=== PATIENT | female | born 1935 | race Caucasian/White ===

== ENCOUNTER 2018-10-17 13:07 | Inpatient (IN) | payer OTHER ==
[2018-10-17] MEDS ORDERED: SODIUM CHLORIDE 1,000 ML IV STA (13:32)
--- NOTE | 2018-10-17 13:37 | PDOC ---
History of Present Illness - General Chief Complaint: Shortness of Breath Stated Complaint: RESPIRATORY PROBLEM Time Seen by Provider: 10/17/18 13:18 History Source: Patient, Family (son), Old Records Exam Limitations: No Limitations - History of Present Illness Initial Comments: 10/17/18 13:40 83yo F with PMH of Asthma?, Hypothyroidism, Restrictive Lung Disease, GERD presenting to ED with complaints of SOB x4m but worsened yesterday. She states that it has gotten to the point that she cannot walk, talk or perform any activity without feeling short of breath. She was following up with a food crops farm hand but has not gotten any breathing treatments. She was supposed to wear a vest but she refused. She endorses dry cough which has worsened over the past few days. She is also complaining of having low energy and decreased appetite. She has lost about 20lb in 8 months and occasional night sweats. No FH of malignancy. 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 Denies fevers, chills, abdominal pain, n/v/ d, back pain, She was in [facility] in June 2018 for similar complaints and CT scans showed pulmonary fibrosis, pulmonary hypertension. She has been following up with a food crops farm hand. PMD: Shoshana Pulm: Miguel Germain PMH: see hpi PSH: none Meds: Prilosec, Levothyroxine Allergies: PCN, albuterol Social: denies Past History - Past Medical History Allergies/Adverse Reactions: Allergies Allergy/AdvReac Type Severity Reaction Status Date / Time Penicillins Allergy Verified 10/17/18 13:21 albuterol AdvReac Verified 10/17/18 13:21 Home Medications: Ambulatory Orders Levothyroxine [Synthroid -] 88 mcg PO DAILY 10/17/18 Omeprazole 20 mg PO DAILY 10/17/18 Asthma: Yes (pt's paperwork states she has asthma, though she denies) Cardiac Disorders: Yes (Bicuspid aortic valve) COPD: No Thyroid Disease: Yes (hyp0, had goiter, radiated) Other medical history: "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 No: Chills, Fever HEENTM: No: Symptoms Reported Respiratory: Yes: See HPI, Cough, Shortness of Breath, SOB with Exertion, SOB at Rest Cardiac (ROS): Yes: Chest Tightness. No: Chest Pain, Lightheadedness, Palpitations, Syncope ABD/GI: No: Symptoms Reported : No: Symptoms Reported Musculoskeletal: No: Symptoms Reported Integumentary: No: Symptoms Reported Neurological: No: Symptoms reported *Physical Exam - Vital Signs Last Vital Signs Temp Pulse Resp BP Pulse Ox 98 F 129 H 28 H 133/73 86 L 10/17/18 13:21 10/17/18 13:21 10/17/18 13:21 10/17/18 13:21 10/17/18 13:21 - Physical Exam General Appearance: Yes: Appropriately Dressed, Mild Distress, Cachetic HEENT: positive: EOMI, SONJA, Normal ENT Inspection, Pharynx Normal Neck: positive: Trachea midline, Supple. negative: Lymphadenopathy (R), Lymphadenopathy (L) Respiratory/Chest: positive: Crackles, Rhonchi. negative: Respiratory Distress , Accessory Muscle Use Cardiovascular: positive: S1, S2, Murmur, Tachycardia. negative: Edema, JVD Vascular Pulses: Dorsalis-Pedis (R): 2+, Doralis-Pedis (L): 2+ Gastrointestinal/Abdominal: positive: Normal Bowel Sounds, Soft. negative: Tender Musculoskeletal: negative: CVA Tenderness Extremity: positive: Normal Capillary Refill. negative: Pedal Edema, Swelling, Calf Tenderness Integumentary: positive: Normal Color, Dry, Warm Neurologic: positive: lead nitrate processor II-XII NML intact, Fully Oriented, Alert, Normal Mood/ Affect, Normal Response, Motor Strength 07/11 ED Treatment Course - LABORATORY CBC & Chemistry Diagram: 10/18/18 06:00 10/18/18 06:00 Medical Decision Making - Medical Decision Making 10/17/18 14:06 83yo F with PMH of Asthma?, Hypothyroidism, Restrictive Lung Disease presenting to ED with complaints of SOB x4m but worsened yesterday. She states that it has gotten to the point that she cannot walk, talk or perform any activity without feeling short of breath. She was following up with a food crops farm hand but has not gotten any breathing treatments. She was supposed to wear a vest but she refused. She endorses dry cough which has worsened over the past few days. She is also complaining of having low energy and decreased appetite. She has lost about 20lb in 8 months and occasional night sweats. No FH of malignancy. 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 She was in [facility] in June 2018 for similar complaints and CT scans showed pulmonary fibrosis, pulmonary hypertension. She has been following up with a food crops farm hand. Vitals: tachycardic, tachypneic, saturating low on RA PE: coarse breath sounds, rhonchorous. cachectic. no edema ddx includes but not limited to pna, ILD, chf, copd, metabolic abnormality, mass /malignancy. will obtain blood work, ekg, cxr. fluids. Rectal temp 99.3. ekg: sinus tachycardia at 118/ [r 126, qtc 428. no ann or depressions. CT scans from [facility]? 06/09/18: CTA enlarged pulmonary aa, extensive fibrosis, traction bronchiectasis, scarring in CARLOS but also lingula, medial LLL R apex. [place] attenuation which may reflect air trapping. penumomediastinum without pneumothorax. Esophogram; abnormal esophageal motility with diffuse tertiary contractions and delayed passage of contrast from stomach to esophagus. 10/17/18 15:32 cxr: scoliosis with convexity to the R and degenerative changes. Mediastinal shift to mic L with elevated L hemidiaphragm, gastric distention and L infiltrate and atelectasis. R lung has increased lung markings with questionable infiltrate at R base. Will obtain cultures and start on antibiotics. Pt complaining of Gerd, will give pepcid. 10/17/18 17:[address] scan. It was explained to the patient that it is vital to understand what is going on inside her lungs and xray is not the most sensitive test. She states that she has had CT scans and she does not want more radiation. It was explained to the patient that the CT scan will better narrow down the diagnosis and see if her condition is getting worse. Patient continues to refuse. Will admit to tele for pna, sob and further investigation of lung disease. accepted by hospitalist. 10/17/18 17:26 pt said she received medication and started to feel itchy. will give Benadryl *DC/Admit/Observation/Transfer Diagnosis at time of Disposition: Shortness of breath PNA (pneumonia) Qualifiers: Pneumonia type: due to unspecified organism Laterality: unspecified laterality Lung location: unspecified part of lung Qualified Code(s): J18.9 - Pneumonia, unspecified organism - Referrals - Patient Instructions - Post Discharge Activity
[2018-10-17 13:38] LABS: BASO % 0.7 % (0-2.0); EOS % 1.3 % (0-4.5); HEMATOCRIT 37.8 % (32.4-45.2); HEMOGLOBIN 12.4 GM/dL (10.7-15.3); LYMPH % 13.7 % (8-40); MCH 28.7 pg (25.7-33.7); MCHC 32.8 g/dl (32.0-36.0); MEAN CELL VOLUME 87.2 fl (80-96); MEAN PLT VOLUME 9.5 fl (7.5-11.1); MONO % 6.1 % (3.8-10.2); NEUT % 78.2 % (42.8-82.8); RBC 4.33 M/mm3 (3.60-5.2); RDW 13.3 % (11.6-15.6); WHITE BLOOD COUNT 11.3 K/mm3 (4.0-10.0)
[2018-10-17 13:45] LABS: PLATELET COUNT 288 K/MM3 (134-434)
[2018-10-17 13:50] LABS: INR 1.11 (0.83-1.09); PROTHROMBIN TIME (PATIENT) 13.1 SEC (9.7-13.0)
[2018-10-17 14:14] LABS: ALBUMIN 3.2 g/dl (3.4-5.0); BILIRUBIN,TOTAL 0.5 mg/dL (0.2-1); BLOOD UREA NITROGEN 14.6 mg/dL (7-18); CALCIUM 9.5 mg/dL (8.5-10.1); CREATININE 0.7 mg/dL (0.55-1.3); MAGNESIUM 1.9 mg/dL (1.8-2.4); POTASSIUM 4.2 mmol/L (3.5-5.1)
[2018-10-17] MEDS ORDERED: FAMOTIDINE 20 MG/50 ML IVPB 20 MG/50 ML MG IVPB ONE ×2 (14:15→14:24)
--- NOTE | 2018-10-17 14:18 | EKG ---
Test Reason : Blood Pressure : / mmHG Vent. Rate : 118 BPM Atrial Rate : 118 BPM P-R Int : 126 ms QRS Dur : 084 ms QT Int : 306 ms P-R-T Axes : 057 -18 032 degrees QTc Int : 428 ms SINUS TACHYCARDIA POSSIBLE LEFT ATRIAL ENLARGEMENT POSSIBLE ANTERIOR INFARCT , AGE UNDETERMINED ABNORMAL ECG NO PREVIOUS ECGS AVAILABLE Confirmed by MD Naeem, Darrell ([id number]) on 10/17/2018 2:18:05 PM Referred By: Confirmed By:Darrell Hartley MD
[2018-10-17] MEDS ORDERED: VANCOMYCIN 1 GM in D5W (PRE-DOCKED) 1,000 MG/250 ML IVPB ONE (14:49)
--- NOTE | 2018-10-17 14:50 | PDOC ---
Documentation entered by Darrell Neri SCRIBE, acting as scribe for Vanna Abreu MD. Vanna Abreu MD: This documentation has been prepared by the evanibeDaron Daniel, SCRIBE, under my direction and personally reviewed by me in its entirety. I confirm that the documentation accurately reflects all work, treatment, procedures, and medical decision making performed by me. Attending Attestation - Resident Resident Name: Birgit,Krista - ED Attending Attestation I have performed the following: I have examined & evaluated the patient, The case was reviewed & discussed with the resident, I agree w/resident's findings & plan, Exceptions are as noted - HPI HPI: 10/17/18 13:53 The patient is an 83 year old female with a past medical history of hypothyroidism, fibrosis, and restrictive lung disease here today for evaluation of shortness of breath. The patient reports that she was admitted to another hospital in June of this year for URI. She reports that she has had shortness of breath since then and that is was the worst it has been yesterday. She notes that she becomes short of breath very quickly, feels weak when performing daily activities, and notes a dry cough. Patient denies headache, lightheadedness. Denies fever, chills. Denies chest pain. Denies nausea, vomiting, diarrhea, abdominal pain. Allergies: penicillins, albuterol PCP: Nhi Anna Telephoto Engineer: Miguel Germain - Physicial Exam PE: GENERAL: Awake, alert, and fully oriented. +Mild tachypnea HEAD: No signs of trauma EYES: PERRLA, EOMI, sclera anicteric, conjunctiva clear ENT: Auricles normal inspection, hearing grossly normal, nares patent, oropharynx clear without exudates. Moist mucosa NECK: Normal ROM, supple, no lymphadenopathy, JVD, or masses LUNGS: Dec breath sounds B/L, no wheezes/rales HEART: Regular rate and rhythm, normal S1 and S2. IV/ systolic murmur at 2nd ICS ABDOMEN: Soft, nontender, normoactive bowel sounds. No guarding, no rebound. No masses EXTREMITIES: Normal range of motion, no edema. No clubbing or cyanosis. No cords, erythema, or tenderness NEUROLOGICAL: Cranial nerves II through XII grossly intact. Normal speech, normal gait. Motor and sensation intact SKIN: Warm, dry, normal turgor, no rashes or lesions noted. - Medical Decision Making Pt with extensive past workup of SOB, now presenting with hypoxia, cough. CXR suspicious for pna, however, difficult to fully evaluate given her anatomy ( significant scoliosis and elevated L hemidiaphragm). Will obtain CT chest. Will also treat for COPD. Plan for admission.
[2018-10-17] MEDS ORDERED: AZITHROMYCIN IVPB 500 MG in DEXTROSE 5%-WATER - 250 ML IVPB ONE (14:52)
[2018-10-17] MEDS ORDERED: AZTREONAM 1 GM VIAL (RESTRICTED TO ID) IVPB ONE (14:53)
[2018-10-17] MEDS ORDERED: AZITHROMYCIN IVPB 500 MG/250 ML BAG IVPB ONE (15:01)
[2018-10-17] MEDS ORDERED: AZTREONAM 1 GM VIAL (RESTRICTED TO ID) ONE (15:32)
[2018-10-17] MEDS ORDERED: VANCOMYCIN 1 GRAM (PRE-DOCKED) 1,000 MG/250 ML BAG IVPB ONE (15:32)
[2018-10-17] MEDS ORDERED: methylPREDNISolone NA SUCC 125 MG/2 ML VIAL IVPUSH ONE (16:08)
[2018-10-17 16:38] LABS: PH,URINE 6.5 (5.0-8.0); URINE APPEARANCE CLEAR; URINE BILIRUBIN NEGATIVE (NEGATIVE); URINE COLOR YELLOW; URINE GLUCOSE (UA) NEGATIVE (NEGATIVE); URINE KETONE NEGATIVE (NEGATIVE); URINE LEUK ESTERASE TRACE (NEGATIVE); URINE NITRITE NEGATIVE (NEGATIVE); URINE PROTEIN NEGATIVE (NEGATIVE); URINE UROBILINOGEN 0.2 mg/dL (0.2-1.0)
[2018-10-17] MEDS ORDERED: methylPREDNISolone NA SUCC 125 MG/2 ML VIAL ONE (16:55)
[2018-10-17 17:41] LABS: EPI CELLS 0.7 /HPF; URINE BACTERIA 2.4 /hpf (NEGATIVE); URINE WBC 0.3 (NEGATIVE)
--- NOTE | 2018-10-17 18:26 | HP ---
CHIEF COMPLAINT: shortness of breath, dry cough, and weakness PCP: HISTORY OF PRESENT ILLNESS: 83 yo F PMH of asthma, Hypothyroidism, possible pulm HTN, restrictive lung disease, GERD presented to the ED with SOB, a dry cough, and weakness. Pt states these symptoms have been persisting since 2018. Pt was recently admitted to [facility] with similar symptoms. Pt states yesterday afternoon her symptoms worsened. She states she feels chest tightness which worsens when she tries to take a deep breath. Pt was not exercising or doing anything out of the ordinary when symptoms occurred. Pt states normally motrin improves her symptoms and walking or activity makes symptoms worse. Pt states that lying flat helps her breathing also. Pt states this is severely impacting her life. Pt states that even talking or taking a deep breath makes her have the dry cough. Pt states she has lost 22 lbs since March. She states she does not have as much of an appetite. Last colonoscopy approx 2 years ago normal, last mammo normal ER course was notable for: (1)CXRAY (2)vanc, zithromax,aztreonam, solumedrol (3) UCx, BCx Recent Travel: cruise in the [place] PAST MEDICAL HISTORY: Asthma, hypothyroid, possible pulm HTN, restrictive lung disease, GERD PAST SURGICAL HISTORY: denies Social History: Smoking:denies Alcohol:denies Drugs: denies Family History: son w/ prostate Ca Allergies Penicillins Allergy (Verified 10/17/18 13:21) albuterol Adverse Reaction (Verified 10/17/18 13:21) HOME MEDICATIONS: Home Medications Medication Instructions Recorded Levothyroxine [Synthroid -] 88 mcg PO DAILY 10/17/18 Omeprazole 20 mg PO DAILY 10/17/18 REVIEW OF SYSTEMS CONSTITUTIONAL: Present: loss of appetite, weight loss, generalized weakness Absent: fever, chills, diaphoresis, malaise HEENT: Absent: rhinorrhea, nasal congestion, throat pain, throat swelling, difficulty swallowing, mouth swelling, ear pain, eye pain, visual changes CARDIOVASCULAR: Present: leg swelling Absent: chest pain, syncope, palpitations, irregular heart rate, lightheadedness RESPIRATORY: Present: cough, shortness of breath, dyspnea with exertion, wheezing Absent: orthopnea, stridor, hemoptysis GASTROINTESTINAL: Absent: abdominal pain, abdominal distension, nausea, vomiting, diarrhea, constipation, melena, hematochezia GENITOURINARY: Absent: dysuria, frequency, urgency, hesitancy, hematuria, flank pain, genital pain MUSCULOSKELETAL: Absent: myalgia, arthralgia, joint swelling, back pain, neck pain SKIN: Present: itching Absent: rash, pallor HEMATOLOGIC/IMMUNOLOGIC: Absent: easy bleeding, easy bruising, lymphadenopathy, frequent infections ENDOCRINE: Present: unexplained weight loss Absent: unexplained weight gain, heat intolerance, cold intolerance NEUROLOGIC: Absent: headache, focal weakness or paresthesias, dizziness, unsteady gait, seizure, mental status changes, bladder or bowel incontinence PSYCHIATRIC: Absent: anxiety, depression, suicidal or homicidal ideation, hallucinations. PHYSICAL EXAMINATION Vital Signs - 24 hr 10/17/18 10/17/18 10/17/18 13:20 13:21 13:38 Temperature 99.3 F 98 F Pulse Rate 129 H 114 H Respiratory 28 H Rate Blood Pressure 133/73 O2 Sat by Pulse 86 L 99 Oximetry (%) 10/17/18 15:50 Temperature Pulse Rate 97 H Respiratory Rate Blood Pressure O2 Sat by Pulse 99 Oximetry (%) GENERAL: Awake, alert, and fully oriented, in no acute distress. pt is cachectic HEAD: Normal with no signs of trauma. EYES: Pupils equal, round and reactive to light, extraocular movements intact. No lid lag. EARS, NOSE, THROAT: Ears normal, nares patent, oropharynx clear without exudates. Moist mucous membranes. NECK: Normal range of motion, supple without lymphadenopathy, JVD, or masses. LUNGS: Breath sounds decreased, wheezes R>L. On 3L NC HEART: tachycardic and regular rhythm, normal S1 and S2 without murmur, rub or gallop. ABDOMEN: Soft, nontender, not distended, normoactive bowel sounds, no guarding, no rebound, no masses. No hepatomegaly or splenomegaly. MUSCULOSKELETAL: Normal range of motion at all joints. No bony deformities or tenderness. No CVA tenderness. UPPER EXTREMITIES: 2+ pulses, warm, well-perfused. No cyanosis. No clubbing. No peripheral edema. LOWER EXTREMITIES: 2+ pulses, warm, well-perfused. No calf tenderness. B/L 1+ peripheral edema. NEUROLOGICAL: Cranial nerves II-XII intact. Normal speech. Normal gait. SKIN: Warm, dry, normal turgor, no rashes or lesions noted, normal capillary refill. Laboratory Results - last 24 hr 10/17/18 10/17/18 10/17/18 12:20 12:20 12:20 WBC 11.3 H RBC 4.33 Hgb 12.4 Hct 37.8 MCV 87.2 MCH 28.7 MCHC 32.8 RDW 13.3 Plt Count 288 MPV 9.5 Absolute Neuts (auto) 8.9 H Neutrophils % 78.2 Lymphocytes % 13.7 Monocytes % 6.1 Eosinophils % 1.3 Basophils % 0.7 Nucleated RBC % 0 PT with INR INR Sodium 131 L Potassium 4.2 Chloride 94 L Carbon Dioxide 28 Anion Gap 9 BUN 14.6 Creatinine 0.7 Est GFR (CKD-EPI)AfAm 92.21 Est GFR (CKD-EPI)NonAf 79.56 Random Glucose 135 H Calcium 9.5 Magnesium 1.9 Total Bilirubin 0.5 AST 50 H ALT 17 Alkaline Phosphatase 101 Troponin I < 0.02 Total Protein 9.0 H Albumin 3.2 L TSH 0.19 L Urine Color Urine Appearance Urine pH Ur Specific [place] Urine Protein Urine Glucose (UA) Urine Ketones Urine Blood Urine Nitrite Urine Bilirubin Urine Urobilinogen Ur Leukocyte Esterase Urine WBC (Auto) Urine RBC (Auto) Urine Casts (Auto) U Epithel Cells (Auto) Urine Bacteria (Auto) 10/17/18 10/17/18 12:20 16:15 WBC RBC Hgb Hct MCV MCH MCHC RDW Plt Count MPV Absolute Neuts (auto) Neutrophils % Lymphocytes % Monocytes % Eosinophils % Basophils % Nucleated RBC % PT with INR 13.10 H INR 1.11 H Sodium Potassium Chloride Carbon Dioxide Anion Gap BUN Creatinine Est GFR (CKD-EPI)AfAm Est GFR (CKD-EPI)NonAf Random Glucose Calcium Magnesium Total Bilirubin AST ALT Alkaline Phosphatase Troponin I Total Protein Albumin TSH Urine Color Yellow Urine Appearance Clear Urine pH 6.5 Ur Specific [place] 1.003 L Urine Protein Negative Urine Glucose (UA) Negative Urine Ketones Negative Urine Blood Trace Urine Nitrite Negative Urine Bilirubin Negative Urine Urobilinogen 0.2 Ur Leukocyte Esterase Trace Urine WBC (Auto) 0.3 Urine RBC (Auto) 2.0 Urine Casts (Auto) 0.00 U Epithel Cells (Auto) 0.7 Urine Bacteria (Auto) 2.4 CXR: There is abdominal shielding, scoliosis with convexity to the right and degenerative changes. There is mediastinal shift to the left with elevated left hemidiaphragm, gastric distention and left infiltrate and atelectasis. The right lung has increased markings with some questionable infiltrate at the right base. The right angle is sharp. The soft tissues are intact. There are no prior studies for comparison. For more complete evaluation, further imaging with CT may be of help. ASSESSMENT/PLAN: 83 yo F PMH asthma, Hypothyroidism, possible pulm HTN, restrictive lung disease , GERD presented to the ED with SOB, a dry cough, and weakness. Pt is admitted for Acute Hypoxic Respiratory Failure likely 2/2 pneumonia Acute Hypoxic Respiratory Failure likely 2/2 pneumonia -CXR reviewed by me, see above -BCx , UCx pending -s/p Zithromax, Aztreonam, Vanco in ED -s/p solumedrol in Ed -c/w levaquin -should obtain sputum cultures, legionella -Chest PT -Pulm recs appreciated -pt allergic to albuterol -On 3L NC, titrate down as tolerated -pre/post O2 -pt refused chest Ct -Pt has questionable hx of pulm htn- recommending Echo Hypothyroidism -c/w home dose synthroid 60 -recommend outpt f/u and rpt thyroid function in 2-3 weeks Malnutrition -recommending cancer screening, pt does not want HIV screening -[employer] outpt -ensure GIppx: protonix DVTppx: Lovenox Dispo: continue to monitor on medicine floor until medically optimized Visit type - Emergency Visit Emergency Visit: Yes ED Registration Date: 10/17/18 Care time: The patient presented to the Emergency Department on the above date and was hospitalized for further evaluation of their emergent condition. - New Patient This patient is new to me today: Yes Date on this admission: 10/18/18 - Critical Care Critical Care patient: No ATTENDING PHYSICIAN STATEMENT I saw and evaluated the patient. I reviewed the resident's note and discussed the case with the resident. I agree with the resident's findings and plan as documented. SUBJECTIVE: OBJECTIVE: ASSESSMENT AND PLAN:
--- NOTE | 2018-10-17 18:28 | PN ---
Teaching Attending Note Name of Resident: Adele Puri ATTENDING PHYSICIAN STATEMENT I saw and evaluated the patient. I reviewed the resident's note and discussed the case with the resident. I agree with the resident's findings and plan as documented. SUBJECTIVE:83yo F with PMH hypothyroid, pulmonary fibrosis and pulmonary HTN presented to the ER with progressively worsening SOB x4 months. suddenly worsened yesterday. is unable to ambulate half a block before getting dyspnic. something she was previously able to do. assoc with dry cough. was hospitalized in June for PNA and was there for an extended stay where she had CT chest and other testing. has been following up with pulmonogist who have been recommending inhalers but has not been compliant. admits to unintentional 20lb weight loss over the pat 8 months due to anorexia. deneis CP, fever, chills, N/V /C/D OBJECTIVE: Last Vital Signs Temp Pulse Resp BP Pulse Ox 98 F 97 H 28 H 133/73 99 10/17/18 13:21 10/17/18 15:50 10/17/18 13:21 10/17/18 13:21 10/17/18 15:50 General NAD, bitemporal wasting, prominent clavicles and cheekbones. frail appearing CV S1 S2 tachy +5/6 murmur Lungs diffuse rales worse in CARLOS. decreased base. poor inspiratory effort abdomen soft NT/ND ASSESSMENT AND PLAN: 83yo F with PMH hypothyroid, pulmonary fibrosis, pulmonary HTN presented to the ER with progressively worsening SOB and found to be in acute hypoxic respiratory failure due to PNA 1. Acute hypoxic respiratory failure due to PNA- was 86% on RA on arrival. currently 95% on 3L NC. will treat underlying infection. pulmonary consult to optimize fibrosis., educated on necessity of compliance. titrate down oxygen requirements as tolerated. check if qualifies for home O2 prior to discharge 2. PNA- recieved vanco/azithro/aztreonam in the ER. recommended obtaining CT chest with patient refused. d/w pt concerns but does not want radiation exposure. will check sputum Cx, urine legionella. cont with levaquin. 3. Pruritis- after administration with vanco. resolved with benadryl. will hold vanco at this time 4. Low TSH-claims LT4 compliance. would have TSH repeated if remains low would need reduction in Lt4 5. malnutrition- as evident by body habitus and weight loss. dietary eval. ensures. encourage po intake. should have cancer screenings if not done. 6. hyponatremia- dehydrated. gentle IVF. 7.High protein-albumin ratio- check HIV. could be dehydrated component as well. repeat 8. PF- pulmonary consult 9. DVT ppx- lovenox
[2018-10-17] MEDS ORDERED: SODIUM CHLORIDE 1,000 ML IV SCH (18:45)
[2018-10-17] MEDS: IPRATROPIUM BR 0.02% 0.5 MG/2.5 ML VIAL.NEB. NEB PRN (23:58)
[2018-10-18] MEDS: LEVOTHYROXINE NA 88 MCG TABLET (FP) PO SCH (06:47)
[2018-10-18 06:52] LABS: BASO % 0.2 % (0-2.0); HEMATOCRIT 35.2 % (32.4-45.2); HEMOGLOBIN 11.6 GM/dL (10.7-15.3); LYMPH % 14.4 % (8-40); MCH 29.1 pg (25.7-33.7); MCHC 32.9 g/dl (32.0-36.0); MEAN CELL VOLUME 88.3 fl (80-96); MEAN PLT VOLUME 9.6 fl (7.5-11.1); MONO % 2.2 % (3.8-10.2); NEUT % 83.2 % (42.8-82.8); PLATELET COUNT 260 K/MM3 (134-434); RBC 3.98 M/mm3 (3.60-5.2); RDW 13.4 % (11.6-15.6); WHITE BLOOD COUNT 5.6 K/mm3 (4.0-10.0)
[2018-10-18 07:18] LABS: BLOOD UREA NITROGEN 10.2 mg/dL (7-18); CALCIUM 9.5 mg/dL (8.5-10.1); CREATININE 0.6 mg/dL (0.55-1.3); MAGNESIUM 2.1 mg/dL (1.8-2.4)
--- NOTE | 2018-10-18 09:53 | CONSULT ---
Admitting History and Physical - Primary Care Physician PCP: Stacy Arango - Admission History of Present Illness: 83 yo F PMH asthma, Hypothyroidism, possible pulm HTN, restrictive lung disease , GERD presented to the ED with SOB, a dry cough, and weakness. Symptoms have persisted since 06/2018 with recent admission to [facility] with similar symptoms. Pt is admitted for Acute Hypoxic Respiratory Failure likely 2/2 pneumonia Selected Entries 10/17/18 10/17/18 10/18/18 13:20 13:21 06:18 Temperature 99.3 F 98 F 98.1 F Laboratory Tests 10/17/18 10/18/18 12:20 06:00 WBC 11.3 H 5.6 Standard Esophagram [id number] July 2018 at [facility] revealed esophageal dysmotility with tertiary contraction, with no aspiration identified. Pt reports eating only Pureed diet and thin liquids due to Trigeminal Neuralgia. She reports poor appetite, drinking 3 Ensure plus daily without weight gain. She coughs after she drinkls "as the liquid hits my stomach" History Source: Patient, Medical Record Limitations to Obtaining History: No Limitations - Smoking History Smoking history: Never smoked History - Admission Reason For Visit: SHORTNESS OF BREATH, PNEUMONIA - Diagnostics X-ray: Report Reviewed (CXR: There is abdominal shielding, scoliosis with convexity to the right and degenerative changes. There is mediastinal shift to the left with elevated left hemidiaphragm, gastric distention and left infiltrate and atelectasis. The right lung has increased markings with some questionable infiltrate at the right base. The right angle is sharp. The soft tissues are intact. There are no prior studies for comparison.) - General Mental Status: Alert and Oriented, Awake and Alert, Able to Follow Commands Attention: Intact Ability to Follow Directions: Excellent Head/Neck Control: WFL - Hearing Hearing: Functional Speech Evaluation - Communication Primary Language: JAPANESE Communication: Yes: Within Normal Limits Oral Expression Ability: Yes: No Impairment - Speech Production Able to Make Needs Known: Yes: WNL Intelligibility: Yes: WNL - Speech Characteristics Voice Loudness: Normal Voice Pitch: Yes: Normal Voice Phonatory-based Quality: Yes: Normal Speech Pattern: Normal Speech Clarity: < 100% Nasal Resonance: Normal Articulation: Yes: Precise - Language/Auditory Comprehension Follows: Yes: 2 Stage Simple Commands - Language/Verbal Expression Able to Respond to Simple Queries: Yes: WNL Able to Communicate Wants and Needs: Yes: WNL Functional Communication Status: Yes: WNL - 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 Memory: Yes: WNL Short Term Memory: Yes: WNL - Swallow Evaluation/Bedside Assessment Current Nutritional Intake: Dysphagia Pureed, Thin Liquids Oral Secretions: Yes: WFL Dentition: Yes: Adequate Facial Symmetry at Rest: Facial Droop Left (Left trigeminal Neuralgia) Lingual Movement: Symmetric Lingual Speed of Movement: Normal Lingual Movement Strgth Against Opposition: Normal Lingual Movement Characteristics: Normal Laryngeal Movement: Able to Palpate Oral Prep Time: WFL A-P Transit: WFL Timing of Swallow: WFL Coughing/Throat Clear: Yes (delayed cough after thin water) Recommendations - Speech Evaluation, Impression/Plan Impression: Persistent cough. Delayed cough after thin water. h/o Tertiary contractions on Esophagram. r/o retrograde aspiration. - Dysphagia Impressions/Plan Dysphagia Impressions: Ongoing Evaluation *Silent aspiration: cannot be R/O at bedside Dysphagia Treatment Plan: OOB for meals, OOB for 1 h. after meals, Other (GERD precautions) Recommendations: MBS w Esophagus - Recommendations Diet Consistency: Dysphagia Pureed Liquids: Thin Liquids Supplement: Ensure, Magic Cup, Ensure Pudding
[2018-10-18] MEDS: ENOXAPARIN NA (PORCINE) 40 MG/0.4 ML DISP.SYRIN SQ SCH (10:40)
[2018-10-18] MEDS: PANTOPRAZOLE 20 MG TABLET (FP) PO SCH (10:40)
--- NOTE | 2018-10-18 11:55 | PN ---
Teaching Attending Note Name of Resident: Adele Puri ATTENDING PHYSICIAN STATEMENT I saw and evaluated the patient. I reviewed the resident's note and discussed the case with the resident. I agree with the resident's findings and plan as documented. SUBJECTIVE:breathing improved but not at baseline. admits to coughing when eating and having difficulty swallowing solids, not liquids. states she was told she had trigeminal neuralgia which she had surgery with significant improvement but has slowly bothering her lately. denies Cp, SOb,f ever, chills, N/V/C/D OBJECTIVE: Last Vital Signs Temp Pulse Resp BP Pulse Ox 97.6 F 83 18 96/59 L 99 10/18/18 09:45 10/18/18 09:45 10/18/18 09:45 10/18/18 09:45 10/18/18 09:45 General NAD, bitemporal wasting, prominent clavicles and cheekbones. frail appearing CV S1 S2 RRR 5/6 holosystolic murmur Lungs diffuse rales worse in CARLOS. decreased base. poor inspiratory effort abdomen soft NT/ND extremities non pitting edema ASSESSMENT AND PLAN: 83yo F with PMH hypothyroid, pulmonary fibrosis, pulmonary HTN presented to the ER with progressively worsening SOB and found to be in acute hypoxic respiratory failure due to PNA 1. Acute hypoxic respiratory failure due to PNA- currently 95% on 2.5 L NC. on levaquin. pulmonary consult to optimize fibrosis., educated on necessity of compliance. titrate down oxygen requirements as tolerated. check if qualifies for home O2 prior to discharge 2. PNA-afebrile. leukocytoiss resolved. on levaquin day 2. PCN allergy noted. f/ u Cx, Ulegionella. refuses CT chest 3. Pruritis- after administration with vanco. resolved with benadryl. will hold vanco at this time 4. +murmur- check echo 5. Dysphagia- concern for malignancy given this with +weight loss. swallow eval ordered. if does not have impairment would need consider EGD to further evaluate 6. Low TSH-claims LT4 compliance. would have TSH repeated if remains low would need reduction in Lt4 7. malnutrition- as evident by body habitus and weight loss. dietary eval. ensures. encourage po intake. 8. hyponatremia- dehydrated. resolved 9.High protein-albumin ratio- check HIV. could be dehydrated component as well. repeat 10. PF- pulmonary consult 11. DVT ppx- lovenox 12. spoke with son present at bedside. all questions answered. verbalized understanding and agreement
--- NOTE | 2018-10-18 12:04 | ECHO ---
Name: KATHY HOPKINS Exam:Adult Echocardiogram Study Date: 10/18/2018 08:25 AM Age: 83 yrs Reason For Study: HX PULMONARY HTN SOB Height: 60 in Weight: 125 lb BSA: 1.5 m2 MMode/2D Measurements & Calculations IVSd: 0.89 cm Ao root diam: 2.7 cm LVIDd: 4.1 cm LA dimension: 2.7 cm LVIDs: 2.6 cm LVPWd: 0.72 cm EDV(Teich): 73.8 ml LVOT diam: 2.0 cm ESV(Teich): 25.1 ml Doppler Measurements & Calculations MV E max freeman: 55.8 cm/sec Ao V2 max: 328.0 cm/sec MV A max freeman: 118.5 cm/sec Ao max P.1 mmHg MV E/A: 0.47 Ao V2 mean: 219.1 cm/sec MV dec time: 0.17 sec Ao mean P.8 mmHg Ao V2 VTI: 64.9 cm EDWARD(I,D): 0.89 cm2 EDWARD(V,D): 0.97 cm2 LV V1 max P.5 mmHg SV(LVOT): 57.9 ml LV V1 mean P.1 mmHg LV V1 max: 106.6 cm/sec LV V1 mean: 67.8 cm/sec LV V1 VTI: 19.3 cm TR max freeman: 296.4 cm/sec PA V2 max: 156.1 cm/sec TR max P.2 mmHg PA max P.7 mmHg PI end-d freeman: 162.9 cm/sec Med Peak E' Freeman: 4.4 cm/sec Med E/e': 12.7 Lat Peak E' Freeman: 6.2 cm/sec Lat E/e': 8.9 Procedure A complete two-dimensional transthoracic echocardiogram was performed (2D, M-mode, Doppler and color flow Doppler). Left Ventricle The left ventricle is normal in size. Left ventricular systolic function is normal. Ejection Fraction = 65- 70%. Grade I diastolic dysfunction, (abnormal relaxation pattern). Ratio E/E'= 12. No regional wall m otion abnormalities noted. Right Ventricle The right ventricle is normal size. The right ventricular systolic function is normal. RV systolic TD I is 10 cm/s. Atria The left atrial size is normal. Right atrial size is normal. Mitral Valve There is mild mitral valve thickening. There is mild mitral annular calcification. There is mild to m oderate mitral regurgitation. Tricuspid Valve The tricuspid valve is normal in structure and function. There is moderate tricuspid regurgitation. P ulmonary artery systolic pressure is at least 41 mmHg assuming RA pressure of 3 mmHg. Aortic Valve The aortic valve is normal in structure and function. No aortic regurgitation is present. Pulmonic Valve The pulmonic valve is not well visualized. Moderate pulmonic valvular regurgitation. Great Vessels The aortic root is normal size. Pericardium/Pleura There is no pericardial effusion. Interpretation Summary The left ventricle is normal in size. Left ventricular systolic function is normal. No regional wall motion abnormalities noted. Ejection Fraction = 65-70%. Grade I diastolic dysfunction, (abnormal relaxation pattern). Ratio E/E'= 12 The right ventricular systolic function is normal. The left atrial size is normal. Right atrial size is normal. There is mild mitral valve thickening. There is mild mitral annular calcification. There is mild to moderate mitral regurgitation. There is moderate tricuspid regurgitation. Pulmonary artery systolic pressure is at least 41 mmHg assuming RA pressure of 3 mmHg Moderate pulmonic valvular regurgitation. There is no pericardial effusion. Kyle Arriaga MD 10/18/2018 12:03 PM
--- NOTE | 2018-10-18 14:08 | CON.PULM ---
Consult Consult Specialty:: PULM/CCM Referred by:: Hospitalist Reason for Consultation:: SOB - History of Present Illness Chief Complaint: SOB - Past Medical History Pulmonary: Yes: Asthma, Bronchitis, Pneumonia, Pulmonary Fibrosis. No: Cancer, COPD, O2 Dependent, Previously Intubated, Pulmonary Embolus, Sleep Apnea - Smoking History Smoking history: Never smoked Home Medications - Allergies Allergies/Adverse Reactions: Allergies Allergy/AdvReac Type Severity Reaction Status Date / Time Penicillins Allergy Verified 10/17/18 13:21 albuterol AdvReac Verified 10/17/18 13:21 - Home Medications Home Medications: Ambulatory Orders Levothyroxine [Synthroid -] 88 mcg PO DAILY 10/17/18 Omeprazole 20 mg PO DAILY 10/17/18 Review of Systems - Review of Systems Gastrointestinal: reports: No Symptoms Genitourinary: reports: No Symptoms Breasts: reports: No Symptoms Reported Musculoskeletal: reports: No Symptoms Integumentary: reports: No Symptoms Neurological: reports: No Symptoms Endocrine: reports: No Symptoms Hematology/Lymphatic: reports: No Symptoms Psychiatric: reports: No Symptoms Physical Exam Vital Sings: Vital Signs Temperature 97.6 F 10/18/18 09:45 Pulse Rate 83 10/18/18 09:45 Respiratory Rate 18 10/18/18 09:45 Blood Pressure 96/59 L 10/18/18 09:45 O2 Sat by Pulse Oximetry (%) 99 10/18/18 09:45 Labs: CBC, BMP 10/18/18 06:00 10/18/18 06:00
--- NOTE | 2018-10-18 16:24 | PN ---
Physical Exam: SUBJECTIVE: Patient seen and examined at bedside. pt states her breathing is improving. Pt states that when she walks around she becomes dyspneic OBJECTIVE: Vital Signs Period Temp Pulse Resp BP Sys/Padilla Pulse Ox Last 24 Hr 97.5 F-98.1 F 63-91 16-20 96-145/59-79 98-100 GENERAL: The patient is awake, alert, and fully oriented, in no acute distress.pt cachectic LUNGS: Breath sounds decreased, clear to auscultation bilaterally, no wheezes at this time , no accessory muscle use. HEART: Regular rate and rhythm, S1, S2 + murmur ABDOMEN: Soft, nontender, nondistended, normoactive bowel sounds, no guarding, no rebound EXTREMITIES: 2+ pulses, warm, well-perfused, b/l LE 1+ edema. SKIN: Warm, dry, normal turgor, no rashes or lesions noted Laboratory Results - last 24 hr 10/17/18 10/18/18 10/18/18 16:15 06:00 06:00 WBC 5.6 RBC 3.98 Hgb 11.6 Hct 35.2 MCV 88.3 MCH 29.1 MCHC 32.9 RDW 13.4 Plt Count 260 MPV 9.6 Absolute Neuts (auto) 4.6 Neutrophils % 83.2 H Lymphocytes % 14.4 Monocytes % 2.2 L Eosinophils % 0.0 D Basophils % 0.2 Nucleated RBC % 0 Sodium 140 Potassium 5.0 Chloride 105 Carbon Dioxide 30 Anion Gap 5 L BUN 10.2 Creatinine 0.6 Est GFR (CKD-EPI)AfAm 97.01 Est GFR (CKD-EPI)NonAf 83.70 Random Glucose 125 H Calcium 9.5 Magnesium 2.1 Urine Color Yellow Urine Appearance Clear Urine pH 6.5 Ur Specific [place] 1.003 L Urine Protein Negative Urine Glucose (UA) Negative Urine Ketones Negative Urine Blood Trace Urine Nitrite Negative Urine Bilirubin Negative Urine Urobilinogen 0.2 Ur Leukocyte Esterase Trace Urine WBC (Auto) 0.3 Urine RBC (Auto) 2.0 Urine Casts (Auto) 0.00 U Epithel Cells (Auto) 0.7 Urine Bacteria (Auto) 2.4 Active Medications Generic Name Dose Route Start Last Admin Trade Name Freq PRN Reason Stop Dose Admin Enoxaparin Sodium 40 mg 10/18/18 10:00 10/18/18 10:40 Lovenox - SQ 40 mg DAILY ONESIMO Administration Ipratropium [place] 1 amp 10/17/18 23:47 10/17/18 23:58 Atrovent 0.02% Nebulizer - NEB 10/24/18 23:48 1 amp Q6H PRN Administration DYSPEPSIA Levofloxacin 500 mg 10/18/18 06:00 10/18/18 06:47 Levaquin - PO 500 mg DAILY@0600 ONESIMO Administration Levothyroxine Sodium 88 mcg 10/18/18 07:00 10/18/18 06:47 Synthroid - PO 88 mcg DAILY@0700 ONESIMO Administration Pantoprazole Sodium 20 mg 10/18/18 10:00 10/18/18 10:40 Protonix - PO 20 mg DAILY ONESIMO Administration ASSESSMENT/PLAN: CXR: There is abdominal shielding, scoliosis with convexity to the right and degenerative changes. There is mediastinal shift to the left with elevated left hemidiaphragm, gastric distention and left infiltrate and atelectasis. The right lung has increased markings with some questionable infiltrate at the right base. The right angle is sharp. The soft tissues are intact. There are no prior studies for comparison. For more complete evaluation, further imaging with CT may be of help. ASSESSMENT/PLAN: 83 yo F PMH asthma, Hypothyroidism, possible pulm HTN, restrictive lung disease , GERD presented to the ED with SOB, a dry cough, and weakness. Pt is admitted for Acute Hypoxic Respiratory Failure likely 2/2 pneumonia Acute Hypoxic Respiratory Failure likely 2/2 pneumonia -CXR reviewed by me, see above -BCx , UCx pending -s/p Zithromax, Aztreonam, Vanco in ED -s/p solumedrol in Ed -c/w levaquin -should obtain sputum cultures, legionella -Chest PT -Pulm recs appreciated -pt allergic to albuterol -On 3L NC, titrate down as tolerated -pre/post O2 -pt refused chest Ct -Pt has questionable hx of pulm htn- recommending Echo Dysphagia -Speech and swallow evaluation recommends puree and ensure -modified barium swallow Hypothyroidism -c/w home dose synthroid 60 -recommend outpt f/u and rpt thyroid function in 2-3 weeks Malnutrition -recommending cancer screening, pt does not want HIV screening -[place] 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 I reviewed the resident's note and discussed the case with the resident. I agree with the resident's findings and plan as documented. SUBJECTIVE: OBJECTIVE: ASSESSMENT AND PLAN:
[2018-10-18] MEDS: IPRATROPIUM BR 0.02% 0.5 MG/2.5 ML VIAL.NEB. NEB PRN (20:32)
[2018-10-19] MEDS: IPRATROPIUM BR 0.02% 0.5 MG/2.5 ML VIAL.NEB. NEB PRN ×2 (05:45→20:25)
[2018-10-19] MEDS: LEVOTHYROXINE NA 88 MCG TABLET (FP) PO SCH (06:13)
[2018-10-19 06:49] LABS: HEMATOCRIT 33.3 % (32.4-45.2); HEMOGLOBIN 11.2 GM/dL (10.7-15.3); MCH 29.6 pg (25.7-33.7); MCHC 33.6 g/dl (32.0-36.0); MEAN CELL VOLUME 88.1 fl (80-96); MEAN PLT VOLUME 9.2 fl (7.5-11.1); PLATELET COUNT 260 K/MM3 (134-434); RBC 3.78 M/mm3 (3.60-5.2); RDW 13.6 % (11.6-15.6); WHITE BLOOD COUNT 8.1 K/mm3 (4.0-10.0)
[2018-10-19 07:20] LABS: BLOOD UREA NITROGEN 9.9 mg/dL (7-18); CALCIUM 9.3 mg/dL (8.5-10.1); CREATININE 0.6 mg/dL (0.55-1.3); MAGNESIUM 1.9 mg/dL (1.8-2.4); PHOSPHOROUS 3.1 mg/dL (2.5-4.9); POTASSIUM 3.8 mmol/L (3.5-5.1)
--- NOTE | 2018-10-19 10:57 | PN ---
Progress Note (short form) - Note Progress Note: PULMONARY CONSULTATION DICTATED 10/19/18 IMP ACUTE ON CHRONIC HYPOXEMIC RESPIRATORY FAILURE DYSPNEA SECONDARY TO MULTIPLE FACTORS LIKELY UNDERLYING COPD SECONDARY TO SECOND SMOKE RADIATION FIBROSIS S/P 38 CYCLES OF RT TO LEFT CHEST RESTRICTIVE LUNG DISEASE SECONDARY TO SEVERE KYPHOSCOLIOSIS/RADIATION FIBROSIS MODERATE PULMONARY HTN MODERATE TO SEVERE DIASTOLIC DYSFUNCTION BRONCHIECTASIS PLAN INHALED BRONCHODILATORS SUPPLEMENTAL O2 AMBULATORY O2 SAT ON RA SHORT COURSE OF MEDROL CARDIOLOGY EVALUATION DR LARA Problem List - Problems (1) Kyphoscoliosis and scoliosis Code(s): M41.9 - SCOLIOSIS, UNSPECIFIED (2) Shortness of breath Code(s): R06.02 - SHORTNESS OF BREATH (3) Aortic stenosis Code(s): I35.0 - NONRHEUMATIC AORTIC (VALVE) STENOSIS (4) Radiation fibrosis of lung Code(s): J70.1 - CHRONIC AND OTHER PULMONARY MANIFESTATIONS DUE TO RADIATION (5) Diastolic dysfunction Code(s): I51.89 - OTHER ILL-DEFINED HEART DISEASES (6) Restrictive lung disease due to kyphoscoliosis Code(s): J98.4 - OTHER DISORDERS OF LUNG; M41.9 - SCOLIOSIS, UNSPECIFIED (7) Bronchiectasis Code(s): J47.9 - BRONCHIECTASIS, UNCOMPLICATED
[2018-10-19] MEDS: ENOXAPARIN NA (PORCINE) 40 MG/0.4 ML DISP.SYRIN SQ SCH (11:48)
[2018-10-19] MEDS: methylPREDNISolone NA SUCC 40 MG/1 ML VIAL IVPUSH SCH ×2 (11:49→17:41)
[2018-10-19] MEDS: PANTOPRAZOLE 20 MG TABLET (FP) PO SCH (11:49)
--- NOTE | 2018-10-19 11:54 | PN ---
Progress Note, PYROTECHNIC ASSEMBLER - Note Progress Note: Selected Entries 10/19/18 10/19/18 02:00 06:00 Temperature 97.8 F 98.1 F Laboratory Tests 10/19/18 05:10 WBC 8.1 MBS completed. On pureed diet/thin liquids with good tolerance.
--- NOTE | 2018-10-19 12:35 | CONS ---
DATE OF CONSULTATION: 10/19/2018 REFERRING PHYSICIAN: Fady Tena MD HISTORY OF PRESENT ILLNESS: The patient is an 83-year-old female with a past medical history of hypothyroidism, pulmonary hypertension, history of questionable breast CA status post 38 cycles of RT to the left chest in 2013, GERD, questionable asthma/COPD, severe kyphoscoliosis, admitted to [facility] with complaint of increasing shortness of breath and dyspnea on exertion. Patient was recently hospitalized at [place] in June of 2018. At the time, she complained of similar symptoms, shortness of breath, and dyspnea on exertion. She felt it was possibly due to URI, hospitalizations for that before. She underwent a CTA of the chest which revealed no evidence of pulmonary emboli, but did reveal moderate fibrosis and bronchiectasis especially in the left lung field. She was apparently hospitalized and treated with steroids, different medications, which have not offered much improvement. She says since previous hospitalization, she has been developing symptoms that have not significantly improved. She states she can only ambulate a few feet and then develops severe chest tightness, which has to stop before she proceeds. She denies any chest pain, nausea, vomiting, or diaphoresis. She denies any chronic cough or hemoptysis. She does have sign of fevers. She does have a weight loss of about 22 pounds since March. 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 There is no history of DVT or PE in the past. There is no history of recent travel. PAST MEDICAL HISTORY: Again includes pulmonary hypertension, extensive radiation fibrosis to the left chest, severe kyphoscoliosis, hypothyroidism, and COPD/ asthma. REVIEW OF SYSTEMS: Positive for dyspnea on exertion, short distance. No chest pain. Positive chest tightness. No fever, no chills. Positive weight loss. No hemoptysis. CURRENT MEDICATIONS: Include Lovenox, Levaquin, Atrovent, Protonix, and Synthroid. 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 PHYSICAL EXAMINATION: General: The patient is an elderly female, thin, well-developed, awake , alert, in no acute distress. Vital Signs: She is currently afebrile, blood pressure is 98/51, respiratory rate 19, O2 saturation is 96% on 3 L. HEENT: Head is normocephalic atraumatic. Neck: Supple. Heart: Regular with S1, S2. There is 3/6 systolic ejection murmur predominantly in the left apex. Lungs: There are crackles noted in the left more anteriorly throughout. Abdomen: Soft. Bowel sounds positive. Extremities: No cyanosis or edema. LABORATORIES: WBC 8.1, hemoglobin 11.2, hematocrit 33.3, and platelet count of 260,000. INR is 1.11. BUN 9, creatinine 0.6. Chest x-ray: Severe kyphoscoliosis, fibrotic changes in the left lung field, and a mediastinum shifted to the left with an elevated left hemidiaphragm and gastric distention and atelectasis in the left lung field. Modified barium swallow was a normal swallowing study. Echocardiogram reveals grade 1 diastolic dysfunction, right ventricle is normal in size and normal right ventricular systolic function. There is moderate to severe aortic valve thickening and moderate to severe valvular aortic stenosis. The pulmonary artery pressure noted to be 41 mmHg. Normal left ventricular systolic function. IMPRESSION: Dyspnea likely secondary to multiple factors. 1. Likely underlying chronic obstructive pulmonary disease secondary to extensive second-hand smoke. 2. Radiation fibrosis status post 38 cycles of radiation therapy to the left chest. 3. Severe restrictive lung disease secondary to severe kyphoscoliosis, radiation fibrosis. . 4. Moderate pulmonary hypertension. 5. Moderate to severe aortic stenosis. 6. Diastolic dysfunction. 7. Bronchiectasis SUGGEST: Inhaled bronchodilator, short course of steroids, ambulatory, O2 saturation on room air, supplemental O2, Cardiology evaluation, abg, chest CT if patient allows. Patient is apprehensive about agreeing to CT, is refusing CT scan at this time secondary to history of radiation exposure, secondary to previous RT. ELY LARA M.D. LISS/[id number]
[2018-10-19 12:36] LABS: ARTERIAL BLD GAS O2 SATURATION 95.9 % (95-98); ARTERIAL BLOOD GAS BASE EXCESS 3.8 meq/l (-2-2); ARTERIAL BLOOD GAS PCO2 51.1 mmHg (35-45); ARTERIAL BLOOD GAS PO2 77.9 mmHg (80-105); ARTERIAL BLOOD GAS pH 7.38 (7.35-7.45)
[2018-10-19 12:40] LABS: ALLENS TEST POSITIVE
--- NOTE | 2018-10-19 13:01 | PN ---
Teaching Attending Note Name of Resident: Adele Puri ATTENDING PHYSICIAN STATEMENT I saw and evaluated the patient. I reviewed the resident's note and discussed the case with the resident. I agree with the resident's findings and plan as documented. SUBJECTIVE: Some improvement in dyspnea. No CP/palpitations/sputum/hemoptysis. No fever/chills. OBJECTIVE: Afebrile, Hemodynamically Stable. Last Vital Signs Temp Pulse Resp BP Pulse Ox 98.1 F 110 H 19 98/51 L 95 10/19/18 06:00 10/19/18 12:32 10/19/18 06:00 10/19/18 06:00 10/19/18 12:32 HEENT - Appears cachectic, frail. No pharyngeal erythema/exudate. No lymphadenopathy. Heart - S1, S2, SM Lungs - good air entry bilaterally, few basal crackles. Abdomen - Soft, non-tender. Bowel Sounds normal. Extremities- no edema, no calf tenderness. Laboratory Results - last 24 hr 10/19/18 10/19/18 10/19/18 05:10 05:10 12:10 WBC 8.1 RBC 3.78 Hgb 11.2 Hct 33.3 MCV 88.1 MCH 29.6 MCHC 33.6 RDW 13.6 Plt Count 260 MPV 9.2 Anticoagulation Therapy No Result Required. Puncture Site No Result Required. ABG pH 7.38 ABG pCO2 at Pt Temp 51.1 H ABG pO2 at Pt Temp 77.9 L ABG HCO3 29.5 H ABG O2 Sat (Measured) 95.9 ABG O2 Content 18.6 ABG Base Excess 3.8 H Seymour Test Positive O2 Delivery Device No Result Required. Oxygen Flow Rate 2l Vent Mode No Result Required. Vent Rate No Result Required. Mechanical Rate No Result Required. Pressure Support Vent No Result Required. Sodium 139 Potassium 3.8 Chloride 102 Carbon Dioxide 34 H Anion Gap 3 L BUN 9.9 Creatinine 0.6 Est GFR (CKD-EPI)AfAm 97.01 Est GFR (CKD-EPI)NonAf 83.70 Random Glucose 68 L Calcium 9.3 Phosphorus 3.1 Magnesium 1.9 Free T4 Cancelled Current Medications Generic Name Dose Route Start Last Admin Trade Name Freq PRN Reason Stop Dose Admin Enoxaparin Sodium 40 mg 10/18/18 10:00 10/19/18 11:48 Lovenox - SQ 40 mg DAILY ONESIMO Administration Ipratropium [place] 1 amp 10/17/18 23:47 10/19/18 05:45 Atrovent 0.02% Nebulizer - NEB 10/24/18 23:48 1 amp Q6H PRN Administration DYSPEPSIA Levofloxacin 500 mg 10/18/18 06:00 10/19/18 06:13 Levaquin - PO 500 mg DAILY@0600 ONESIMO Administration Levothyroxine Sodium 88 mcg 10/18/18 07:00 10/19/18 06:13 Synthroid - PO 88 mcg DAILY@0700 ONESIMO Administration Methylprednisolone Sodium Succinate 40 mg 10/19/18 11:45 10/19/18 11:49 Solu-Medrol - IVPUSH 40 mg Q8H-IV ONESIMO Administration Pantoprazole Sodium 20 mg 10/18/18 10:00 10/19/18 11:49 Protonix - PO 20 mg DAILY ONESIMO Administration Home Medications Medication Instructions Recorded Levothyroxine [Synthroid -] 88 mcg PO DAILY 10/17/18 Omeprazole 20 mg PO DAILY 10/17/18 ASSESSMENT AND PLAN: 83 year old female with history of Hypothyroidism, Pulmonary Fibrosis (sec to radiation therapy), 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 1. Acute Hypoxic Respiratory Failure secondary to Pneumonia with exacerbation of Pulmonary Fibrosis. CXR - L infiltrate. Afebrile, hemodynamically Stable. Urine Legionella/Strep negative. Evaluated by Pulm - recommended for Medrol course for Pul fibrosis. Continue Bronchodilator Nebs. Attempt to wean off O2. Pre/Post SpO2 requested. Continue Levofloxacin (PCN allergy) 2. Drug Reaction - pruritus s/p vancomycin - no rash or ongoing pruritus. 3. Pulmonary HTN/Moderate to Severe Echo shows Grade 1 diastolic dysfunction, moderate NV, Pul Artery pressure 41 Cardiology consult for further evaluation and optimization. 4. Dysphagia - MBS performed and recommendations for pureed diet, ensure, magic cup. Out-patient GI referral if any ongoing dysphagia. 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 If persists, will reduce Synthroid dose. 6. Malnutrition - Dietary recs include magic cup and ensure. DVT Px - Lovenox SQ.
--- NOTE | 2018-10-19 14:06 | PN ---
Physical Exam: SUBJECTIVE: Patient seen and examined at bedside. Pt states her breathing is improving and she is coughing less. OBJECTIVE: Vital Signs Period Temp Pulse Resp BP Sys/Padilla Pulse Ox Last 24 Hr 97.4 F-98.4 F 78-112 - 88-124/44-72 95-98 GENERAL: The patient is awake, alert, and fully oriented, in no acute distress. LUNGS: Breath sounds decreased b/l . no accessory muscle use. HEART: Regular rate and rhythm, S1, S2 systolic murmur ABDOMEN: Soft, nontender, nondistended, normoactive bowel sounds, no guarding EXTREMITIES: 2+ pulses, warm, well-perfused, mild b/l le edema. SKIN: Warm, dry, normal turgor, no rashes or lesions noted Laboratory Results - last 24 hr 10/19/18 10/19/18 10/19/18 05:10 05:10 12:10 WBC 8.1 RBC 3.78 Hgb 11.2 Hct 33.3 MCV 88.1 MCH 29.6 MCHC 33.6 RDW 13.6 Plt Count 260 MPV 9.2 Anticoagulation Therapy No Result Required. Puncture Site No Result Required. ABG pH 7.38 ABG pCO2 at Pt Temp 51.1 H ABG pO2 at Pt Temp 77.9 L ABG HCO3 29.5 H ABG O2 Sat (Measured) 95.9 ABG O2 Content 18.6 ABG Base Excess 3.8 H Seymour Test Positive O2 Delivery Device No Result Required. Oxygen Flow Rate 2l Vent Mode No Result Required. Vent Rate No Result Required. Mechanical Rate No Result Required. Pressure Support Vent No Result Required. Sodium 139 Potassium 3.8 Chloride 102 Carbon Dioxide 34 H Anion Gap 3 L BUN 9.9 Creatinine 0.6 Est GFR (CKD-EPI)AfAm 97.01 Est GFR (CKD-EPI)NonAf 83.70 Random Glucose 68 L Calcium 9.3 Phosphorus 3.1 Magnesium 1.9 Free T4 Cancelled Active Medications Generic Name Dose Route Start Last Admin Trade Name Freq PRN Reason Stop Dose Admin Enoxaparin Sodium 40 mg 10/18/18 10:00 10/19/18 11:48 Lovenox - SQ 40 mg DAILY ONESIMO Administration Ipratropium [place] 1 amp 10/17/18 23:47 10/19/18 05:45 Atrovent 0.02% Nebulizer - NEB 10/24/18 23:48 1 amp Q6H PRN Administration DYSPEPSIA Levofloxacin 500 mg 10/18/18 06:00 10/19/18 06:13 Levaquin - PO 500 mg DAILY@0600 ONESIMO Administration Levothyroxine Sodium 88 mcg 10/18/18 07:00 10/19/18 06:13 Synthroid - PO 88 mcg DAILY@0700 ONESIMO Administration Methylprednisolone Sodium Succinate 40 mg 10/19/18 11:45 10/19/18 11:49 Solu-Medrol - IVPUSH 40 mg Q8H-IV ONESIMO Administration Pantoprazole Sodium 20 mg 10/18/18 10:00 10/19/18 11:49 Protonix - PO 20 mg DAILY ONESIMO Administration CXR: There is abdominal shielding, scoliosis with convexity to the right and degenerative changes. There is mediastinal shift to the left with elevated left hemidiaphragm, gastric distention and left infiltrate and atelectasis. The right lung has increased markings with some questionable infiltrate at the right base. The right angle is sharp. The soft tissues are intact. There are no prior studies for comparison. For more complete evaluation, further imaging with CT may be of help. ASSESSMENT/PLAN: 83 yo F PMH asthma, Hypothyroidism, possible pulm HTN, restrictive lung disease , GERD presented to the ED with SOB, a dry cough, and weakness. Pt is admitted for Acute Hypoxic Respiratory Failure likely 2/2 pneumonia Acute Hypoxic Respiratory Failure likely 2/2 pneumonia -CXR reviewed by me, see above -BCx , UCx pending -s/p Zithromax, Aztreonam, Vanco in ED -s/p solumedrol in Ed -c/w levaquin - sputum cultures, legionella negative -Chest PT -Pulm recs appreciated -pt allergic to albuterol -On 3L NC, titrate down as tolerated -pre/post O2 -pt refused chest Ct -Pt has questionable hx of pulm htn- recommending Echo Restrictive Lung Disease -likely 2/2 scoliosis -c/w medrol as per pulm recs -Pt should f/u outpt Pulm Htn/ Severe -Echo: Grade I diastolic dysfxn, moderate MO, Pulm a. 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 I reviewed the resident's note and discussed the case with the resident. I agree with the resident's findings and plan as documented. SUBJECTIVE: OBJECTIVE: ASSESSMENT AND PLAN:
--- NOTE | 2018-10-19 17:03 | CON.CARD ---
Consult Consult Specialty:: Cardiology Referred by:: Dr. Fady Tena Reason for Consultation:: Aortic stenosis and pulmonary hypertension - History of Present Illness Chief Complaint: Shortness of breath and weakness. History of Present Illness: 83 year-old woman with a PMHx of bicuspid aortic valve with moderate to severe aortic stenosis, COPD/asthma, hypothyroidism, pulm HTN, restrictive lung disease , GERD breast cancer s/p radiation therapy admitted 10/17/18 with SOB, dry cough , and weakness. 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 The patient states she feels chest tightness which worsens when she tries to take a deep breath. She has no dizziness, syncope or near syncope. The patient has been followed with Dr. Marco A Brewster for her cardiac care. ECG 10/17/2018: Sinus tachycardia at [address]-T abnormalities. Echocardiogram at [facility] 10/18/2018: Normal LV size and systolic function. LVEF 65- 70%. Normal RV. Normal LA and RA in size. Moderate to severe aortic stenosis with EDWARD = 0.9 cm2. Mean gradient 24 mmHg. Mild to moderate MR and TR. Mild pulmonary hypertension. PASP = 41 mmHg. Echocardiogram at [facility] 06/03/2018: Normal LV size and wall motion. LVEF 65% . Normal RV. Mild LA and RA dilatation. Bicuspid aortic valve with moderate to severe aortic stenosis with peak gradient of 39.4 amd mean gradient 15.7 mmHg. DEWARD = 1.0 cm2. Aortic valve area index is 0.79 cm2/m2. Mild MR. Mild to moderate TR. Mild pulmonary HTN with PASP = 44 mmHg. - History Source History Provided By: Patient, Family Member, Medical Record Limitations to Obtaining History: No Limitations - Past Medical History Cardio/Vascular: Yes: Aortic Stenosis, CHF, Mitral Insufficiency, Pulmonary Hypertension Gastrointestinal: Yes: Ascites ...: No - Alcohol/Substance Use Hx Alcohol Use: No - Smoking History Smoking history: Never smoked Have you smoked in the past 12 months: No Home Medications - Allergies Allergies/Adverse Reactions: Allergies Allergy/AdvReac Type Severity Reaction Status Date / Time Penicillins Allergy Verified 10/17/18 13:21 albuterol AdvReac Verified 10/17/18 13:21 - Home Medications Home Medications: Ambulatory Orders Omeprazole 20 mg PO DAILY 10/17/18 Thyroid [[place] Thyroid] 60 mg PO DAILY 10/19/18 Review of Systems - Review of Systems Constitutional: reports: Weakness Eyes: reports: No Symptoms HENT: reports: No Symptoms Neck: reports: No Symptoms Cardiovascular: reports: Chest Pain Respiratory: reports: Cough, SOB, SOB on Exertion Gastrointestinal: reports: No Symptoms Genitourinary: reports: No Symptoms Breasts: reports: No Symptoms Reported Musculoskeletal: reports: No Symptoms Integumentary: reports: No Symptoms Neurological: reports: No Symptoms Endocrine: reports: No Symptoms Hematology/Lymphatic: reports: No Symptoms Psychiatric: reports: No Symptoms Vital Signs: Vital Signs Temperature 98 F 10/19/18 14:00 Pulse Rate 98 H 10/19/18 14:00 Respiratory Rate 18 10/19/18 14:00 Blood Pressure 100/65 10/19/18 14:00 O2 Sat by Pulse Oximetry (%) 95 10/19/18 12:32 General: Well developed. Chronic ill. No acute distress. Head: Normocephalic. Atraumatic, Eyes: PERRLA, EOMI. Sclerae anicteric. Conjunctivae clear. Neck: Supple. No JVD. No bruits. Heart: Normal S1, S2: Regular rhythm and rate. II/ EARL at right USB with radiation to bilateral carotids. A2 audible. No gallop or rub. Lungs: Symmetrical limited air entry. Clear to auscultation. No crackle. No wheezing or rhonchi. Abdomen: Soft. Bowel sound positive. Non tender. No masses. Extremities: No edema. No clubbing or cyanosis. PD 2+, equal bilaterally. Neuro: Intact, no focal findings. AAO X3. - Other Data Labs, Other Data: CBC, BMP 10/19/18 05:10 10/19/18 05:10 INR, PTT INR 1.11 (0.83-1.09) H 10/17/18 12:20 Assessment/Plan 83 year-old woman with a PMHx of bicuspid aortic valve with moderate to severe aortic stenosis, COPD/asthma, hypothyroidism, pulm HTN, restrictive lung disease , GERD breast cancer s/p radiation therapy admitted 10/17/18 with SOB, dry cough , and weakness. 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 Echocardiogram at [facility] 10/18/2018: Normal LV size and systolic function. LVEF 65- 70%. Normal RV. Normal LA and RA in size. Moderate to severe aortic stenosis with EDWARD = 0.9 cm2. Mean gradient 24 mmHg. Mild to moderate MR and TR. Mild pulmonary hypertension. PASP = 41 mmHg. Echocardiogram at [facility] 06/03/2018: Normal LV size and wall motion. LVEF 65% . Normal RV. Mild LA and RA dilatation. Bicuspid aortic valve with moderate to severe aortic stenosis with peak gradient of 39.4 amd mean gradient 15.7 mmHg. EDWARD = 1.0 cm2. Aortic valve area index is 0.79 cm2/m2. Mild MR. Mild to moderate TR. Mild pulmonary HTN with PASP = 44 mmHg. 1) Moderate to severe aortic stenosis with evidence of bicuspid aortic valve. Patient has some atypical chest pain, likely non-cardiac origin. No urgent indication for aortic valvular intervention. Out-patient cardiac follow up with Dr. Brewster for close monitor of symptoms and progression of aortic stenosis. 2) Mild pulmonary hypertension from non-invasive tests (echocardiograms). It is likely mixed Group 2 and Group 3. There is no evidence of RV dilatation or dysfunction. No indication to invasive work up at this time. Please do not hesitate to call us for re-consult at any time if any further questions or additional issue arises regarding this patient.
[2018-10-19] MEDS ORDERED: LEVOTHYROXINE NA 88 MCG TABLET (FP) PO SCH (17:27)
[2018-10-20] MEDS: methylPREDNISolone NA SUCC 40 MG/1 ML VIAL IVPUSH SCH ×2 (01:24→10:30)
[2018-10-20] MEDS ORDERED: LEVOTHYROXINE NA 25 MCG TABLET (FP) ONE (06:00)
[2018-10-20] MEDS ORDERED: LEVOTHYROXINE NA 50 MCG TABLET (FP) ONE (06:00)
[2018-10-20] MEDS ORDERED: LEVOTHYROXINE PO SCH (07:00)
[2018-10-20] MEDS ORDERED: PT OWN MED DRAWER 7, Y5N ONE (07:13)
[2018-10-20 08:21] LABS: BLOOD UREA NITROGEN 11.2 mg/dL (7-18); CALCIUM 9.4 mg/dL (8.5-10.1); CREATININE 0.5 mg/dL (0.55-1.3); MAGNESIUM 2.1 mg/dL (1.8-2.4); PHOSPHOROUS 3.1 mg/dL (2.5-4.9); POTASSIUM 4.3 mmol/L (3.5-5.1)
[2018-10-20 08:44] LABS: HEMATOCRIT 30.8 % (32.4-45.2); HEMOGLOBIN 10.2 GM/dL (10.7-15.3); MCHC 33.2 g/dl (32.0-36.0); MEAN CELL VOLUME 87.4 fl (80-96); PLATELET COUNT 240 K/MM3 (134-434); RBC 3.53 M/mm3 (3.60-5.2); RDW 13.3 % (11.6-15.6); WHITE BLOOD COUNT 8.2 K/mm3 (4.0-10.0)
--- NOTE | 2018-10-20 10:25 | DS ---
Physical Exam: SUBJECTIVE: Patient seen and examined at bedside. pt states she is breathing better with oxygen and states she becomes short of breath with activity when shes not on oxygen OBJECTIVE: Vital Signs Period Temp Pulse Resp BP Sys/Padilla Pulse Ox Last 24 Hr 97.6 F-99.5 F 75-110 18-20 98-120/60-75 95-95 PHYSICAL EXAM GENERAL: The patient is awake, alert, and fully oriented, in no acute distress. LUNGS: Breath sounds equal, clear to auscultation bilaterally, no wheezes, no crackles, no accessory muscle use. HEART: Regular rate and rhythm, S1, S2 + murmur ABDOMEN: Soft, nontender, nondistended, normoactive bowel sounds, no guarding, no rebound, no hepatosplenomegaly, no masses. EXTREMITIES: 2+ pulses, warm, well-perfused, no edema. SKIN: Warm, dry, normal turgor, no rashes or lesions noted. LABS Laboratory Results - last 24 hr 10/19/18 10/19/18 10/20/18 12:10 15:20 07:05 WBC 8.2 RBC 3.53 L Hgb 10.2 L Hct 30.8 L MCV 87.4 MCH 29.0 MCHC 33.2 RDW 13.3 Plt Count 240 MPV 10.0 Anticoagulation Therapy No Result Required. Puncture Site No Result Required. ABG pH 7.38 ABG pCO2 at Pt Temp 51.1 H ABG pO2 at Pt Temp 77.9 L ABG HCO3 29.5 H ABG O2 Sat (Measured) 95.9 ABG O2 Content 18.6 ABG Base Excess 3.8 H Seymour Test Positive O2 Delivery Device No Result Required. Oxygen Flow Rate 2l Vent Mode No Result Required. Vent Rate No Result Required. Mechanical Rate No Result Required. Pressure Support Vent No Result Required. Sodium Potassium Chloride Carbon Dioxide Anion Gap BUN Creatinine Est GFR (CKD-EPI)AfAm Est GFR (CKD-EPI)NonAf Random Glucose Calcium Phosphorus Magnesium TSH 0.27 L 10/20/18 07:05 WBC RBC Hgb Hct MCV MCH MCHC RDW Plt Count MPV Anticoagulation Therapy Puncture Site ABG pH ABG pCO2 at Pt Temp ABG pO2 at Pt Temp ABG HCO3 ABG O2 Sat (Measured) ABG O2 Content ABG Base Excess Seymour Test O2 Delivery Device Oxygen Flow Rate Vent Mode Vent Rate Mechanical Rate Pressure Support Vent Sodium 140 Potassium 4.3 Chloride 100 Carbon Dioxide 37 H Anion Gap 3 L BUN 11.2 Creatinine 0.5 L Est GFR (CKD-EPI)AfAm 103.01 Est GFR (CKD-EPI)NonAf 88.88 Random Glucose 58 L Calcium 9.4 Phosphorus 3.1 Magnesium 2.1 TSH 0.23 L CXR: There is abdominal shielding, scoliosis with convexity to the right and degenerative changes. There is mediastinal shift to the left with elevated left hemidiaphragm, gastric distention and left infiltrate and atelectasis. The right lung has increased markings with some questionable infiltrate at the right base. The right angle is sharp. The soft tissues are intact. There are no prior studies for comparison. For more complete evaluation, further imaging with CT may be of help. HOSPITAL COURSE: Date of Admission:10/17/18 ASSESSMENT/PLAN: 83 yo F PMH asthma, Hypothyroidism, possible pulm HTN, restrictive lung disease , GERD presented to the ED with SOB, a dry cough, and weakness. Pt is admitted for Acute Hypoxic Respiratory Failure likely 2/2 pneumonia. During hospital course, pt had an XR please see above. CXR was reviewed. Pt denied a CT since she recently had one in June at outside hospital. Pt had Blood and urine cultures which were negative. Sputum cultures were negative and legionella was negative. Since the pt has a penicillin allergy, she received zithromax, aztreonam, and vanco in the ed. pt was continued on levaquin throughout the hospital course ( x2days). Pt will be discharged on levaquin. Pt states relieved symptoms and improved breathing. Pt pneumonia had improved. Pt was afebrile with no leukocytosis and cough improved. Pt had an echo showing grade I diastolic dysfunction and severe . Pt was seen by pulmonology and cardiology. Pt was recommended to continue solumedrol as per pulm recommendations. Pts labs showed low tsh, may not be on appropriate dose of thyroid armour/ synthroid. WE decreased her dose of armour thyroid from 60 mg to 30 mg. pt is recommended to recheck thyroid in 2-3 weeks. Pt also complained of dysphagia to solid food. pt had barium swallow. pt should follow up with GI if these sxs persist.When pneumonia resolved, Pt was challenged without supplemental oxygen and desaturated down to 78% without oxygen when challenged to walk. Due to severe kyphosis, patient requires trilogy in IVAPS mode to improve pulmonary function due to severity of restriction. pt is unable to use bipap st/asv settings as pt would be unable to overcome set pressures. Pt is recommended to f/u with cardiology, pulmonology, PCP, and endocrine upon discharge. Pt is recommended to take 4 days of prednisone and 1 day of levaquin on dc . Date of Discharge: 10/20/18 Minutes to complete discharge: 36 Discharge Summary Reason For Visit: SHORTNESS OF BREATH, PNEUMONIA Current Active Problems Aortic stenosis (Acute) Bronchiectasis (Acute) Diastolic dysfunction (Acute) Kyphoscoliosis and scoliosis (Acute) PNA (pneumonia) (Acute) Radiation fibrosis of lung (Acute) Restrictive lung disease due to kyphoscoliosis (Acute) Shortness of breath (Acute) Condition: Improved - Instructions Diet, Activity, Other Instructions: You came into the hospital with shortness of breath and a cough. You were treated with antibiotics and oxygen. You had an Echocardiogram of your heart showing that you have some dysfunction with some valves in your heart. You were evaluated by candy packer, no interventions recommended at this time, but close follow-up with your heart doctor. Your blood shows some abnormalities in your thyroid function. We will decreased your thyroid medication dose. You would need a repeat thyroid function test in 3 -4 weeks. Medications: 1. Levaquin 500mg by mouth for one more dose tomorrow morning. 2. Prednisone 40mg daily for 4 more days starting tomorrow. 3. We decreased your dose of [place] Thyroid from 60 mg to 30 mg daily starting tomorrow. Continue your other home medications. Please follow up with your primary care physician within 1 week. Please follow up with your wildlife ecologist, Dr. Fulton, for additional testing, including PFTs to further manage your lung condition. Please follow up with your candy packer, Dr. Brewster, to further monitor your heart. Please follow up with gastroenterology if you continue to have difficulty with swallowing your food. You may follow up with neurologist (Dr. Small). Please continue to follow a low sodium diet. You are being discharged with oxygen for home. You should continue to use this oxygen since your oxygen levels decrease without it. Please return to the ER if you have any signs or symptoms of chest pain, shortness of breath, uncontrollable fever, chills, nausea, vomiting, numbness, tingling, or weakness in any part of your body, changes in vision, or slurred speech. Please return to the ER if symptoms persist, worsen, or new symptoms arise. Referrals: [facility] [place] [facility] [place] [Provider Group] Drew Small MD [Staff Physician] - Vinny Fulton MD [Staff Physician] - Marco A Brewster MD [Staff Physician] - Disposition: HOME - Home Medications Comprehensive Discharge Medication List: Ambulatory Orders Omeprazole 20 mg PO DAILY 10/17/18 Thyroid [[place] Thyroid] 60 mg PO DAILY 10/19/18 This patient is new to me today: No Emergency Visit: No Critical Care patient: No - Discharge Referral Referred to [facility] No ATTENDING PHYSICIAN STATEMENT I saw and evaluated the patient. I reviewed the resident's note and discussed the case with the resident. I agree with the resident's findings and plan as documented. SUBJECTIVE: OBJECTIVE: ASSESSMENT AND PLAN:
[2018-10-20] MEDS: ENOXAPARIN NA (PORCINE) 40 MG/0.4 ML DISP.SYRIN SQ SCH (10:26)
[2018-10-20] MEDS: PANTOPRAZOLE 20 MG TABLET (FP) PO SCH (10:26)
--- NOTE | 2018-10-20 10:56 | PN ---
Progress Note, Physician History of Present Illness: pulmonary alert,less dyspneic,unable to tolerate medrol - Current Medication List Current Medications: Active Medications Enoxaparin Sodium (Lovenox -) 40 mg SQ DAILY [facility] Last Admin: 10/20/18 10:26 Dose: 40 mg Ipratropium Christine (Atrovent 0.02% Nebulizer -) 1 amp NEB Q6H PRN PRN Reason: DYSPEPSIA Stop: 10/24/18 23:48 Last Admin: 10/19/18 20:25 Dose: 1 amp Levofloxacin (Levaquin -) 500 mg PO DAILY@0600 [facility] Last Admin: 10/20/18 06:11 Dose: 500 mg Levothyroxine Sodium 12.5 mcg/ (Levothyroxine Sodium 50 mcg) 62.5 mcg PO DAILY@ 0700 [facility] Last Admin: 10/20/18 06:10 Dose: 62.5 mcg Methylprednisolone Sodium Succinate (Solu-Medrol -) 40 mg IVPUSH Q8H-IV [facility] Last Admin: 10/20/18 10:30 Dose: Not Given Pantoprazole Sodium (Protonix -) 20 mg PO DAILY [facility] Last Admin: 10/20/18 10:26 Dose: 20 mg - Objective Vital Signs: Vital Signs Temperature 97.6 F 10/20/18 06:00 Pulse Rate 75 10/20/18 06:00 Respiratory Rate 18 10/20/18 06:00 Blood Pressure 120/60 10/20/18 06:00 O2 Sat by Pulse Oximetry (%) 95 10/19/18 21:00 Constitutional: Yes: Calm, Thin Eyes: Yes: WNL HENT: Yes: WNL Neck: Yes: WNL Cardiovascular: Yes: Regular Rate and Rhythm, Murmur, S1, S2 Respiratory: Yes: Rales (crackles on left) Gastrointestinal: Yes: Normal Bowel Sounds, Soft Extremities: Yes: WNL Edema: No Labs: CBC, BMP 10/20/18 07:05 10/20/18 07:05 INR, PTT INR 1.11 (0.83-1.09) H 10/17/18 12:20 Laboratory Tests 10/19/18 12:10 ABG pH 7.38 ABG pCO2 at Pt Temp 51.1 H ABG pO2 at Pt Temp 77.9 L ABG HCO3 29.5 H ABG O2 Sat (Measured) 95.9 Oxygen Flow Rate 2l Problem List - Problems (1) Kyphoscoliosis and scoliosis Code(s): M41.9 - SCOLIOSIS, UNSPECIFIED (2) Shortness of breath Code(s): R06.02 - SHORTNESS OF BREATH (3) Aortic stenosis Code(s): I35.0 - NONRHEUMATIC AORTIC (VALVE) STENOSIS (4) Radiation fibrosis of lung Code(s): J70.1 - CHRONIC AND OTHER PULMONARY MANIFESTATIONS DUE TO RADIATION (5) Diastolic dysfunction Code(s): I51.89 - OTHER ILL-DEFINED HEART DISEASES (6) Restrictive lung disease due to kyphoscoliosis Code(s): J98.4 - OTHER DISORDERS OF LUNG; M41.9 - SCOLIOSIS, UNSPECIFIED (7) Bronchiectasis Code(s): J47.9 - BRONCHIECTASIS, UNCOMPLICATED Assessment/Plan IMP ACUTE ON CHRONIC HYPOXEMIC/HYPERCAPNEIC RESPIRATORY FAILURE DYSPNEA SECONDARY TO MULTIPLE FACTORS LIKELY UNDERLYING COPD SECONDARY TO SECOND SMOKE RADIATION FIBROSIS S/P 38 CYCLES OF RT TO LEFT CHEST RESTRICTIVE LUNG DISEASE SECONDARY TO SEVERE KYPHOSCOLIOSIS/RADIATION FIBROSIS MODERATE PULMONARY HTN MODERATE TO SEVERE DIASTOLIC DYSFUNCTION BRONCHIECTASIS PLAN INHALED BRONCHODILATORS SUPPLEMENTAL O2 PREDNISONE 40mg DAILY HOME O2 PFTS OUTPATIENT DR LARA Problem List - Problems (1) Kyphoscoliosis and scoliosis Code(s): M41.9 - SCOLIOSIS, UNSPECIFIED (2) Shortness of breath Code(s): R06.02 - SHORTNESS OF BREATH (3) Aortic stenosis Code(s): I35.0 - NONRHEUMATIC AORTIC (VALVE) STENOSIS (4) Radiation fibrosis of lung Code(s): J70.1 - CHRONIC AND OTHER PULMONARY MANIFESTATIONS DUE TO RADIATION (5) Diastolic dysfunction Code(s): I51.89 - OTHER ILL-DEFINED HEART DISEASES (6) Restrictive lung disease due to kyphoscoliosis Code(s): J98.4 - OTHER DISORDERS OF LUNG; M41.9 - SCOLIOSIS, UNSPECIFIED (7) Bronchiectasis Code(s): J47.9 - BRONCHIECTASIS, UNCOMPLICATED
--- NOTE | 2018-10-20 12:06 | PN ---
Progress Note, FISH AGENT - Note Progress Note: Selected Entries 10/20/18 10/20/18 10/20/18 01:53 06:00 10:00 Breakfast Temperature 97.8 F 97.6 F 98.0 F 10/20/18 11:37 Breakfast 75% Temperature Laboratory Tests 10/20/18 07:05 WBC 8.2 Tolerating diet well. Denies coughing with PO intake. MBS reviewed with pt/son.
--- NOTE | 2018-10-20 12:30 | PN ---
Teaching Attending Note Name of Resident: Adele Puri ATTENDING PHYSICIAN STATEMENT I saw and evaluated the patient. I reviewed the resident's note and discussed the case with the resident. I agree with the resident's findings and plan as documented. SUBJECTIVE: Improvement in dyspnea. No CP/palpitations/sputum/hemoptysis. No fever/chills. OBJECTIVE: Afebrile, Hemodynamically Stable. Desaturating off O2. Last Vital Signs Temp Pulse Resp BP Pulse Ox 98.0 F 96 H 20 95/56 L 95 10/20/18 10:00 10/20/18 10:00 10/20/18 10:00 10/20/18 10:00 10/19/18 21:00 HEENT - Appears cachectic, frail. No pharyngeal erythema/exudate. No lymphadenopathy. Heart - S1, S2, SM Lungs - good air entry bilaterally, few basal crackles. Abdomen - Soft, non-tender. Bowel Sounds normal. Extremities- no edema, no calf tenderness. Laboratory Results - last 24 hr 10/19/18 10/19/18 10/20/18 12:10 15:20 07:05 WBC 8.2 RBC 3.53 L Hgb 10.2 L Hct 30.8 L MCV 87.4 MCH 29.0 MCHC 33.2 RDW 13.3 Plt Count 240 MPV 10.0 Anticoagulation Therapy No Result Required. Puncture Site No Result Required. ABG pH 7.38 ABG pCO2 at Pt Temp 51.1 H ABG pO2 at Pt Temp 77.9 L ABG HCO3 29.5 H ABG O2 Sat (Measured) 95.9 ABG O2 Content 18.6 ABG Base Excess 3.8 H Se[place]our Test Positive O2 Delivery Device No Result Required. Oxygen Flow Rate 2l Vent Mode No Result Required. Vent Rate No Result Required. Mechanical Rate No Result Required. Pressure Support Vent No Result Required. Sodium Potassium Chloride Carbon Dioxide Anion Gap BUN Creatinine Est GFR (CKD-EPI)AfAm Est GFR (CKD-EPI)NonAf Random Glucose Calcium Phosphorus Magnesium TSH 0.27 L 10/20/18 07:05 WBC RBC Hgb Hct MCV MCH MCHC RDW Plt Count MPV Anticoagulation Therapy Puncture Site ABG pH ABG pCO2 at Pt Temp ABG pO2 at Pt Temp ABG HCO3 ABG O2 Sat (Measured) ABG O2 Content ABG Base Excess Seymour Test O2 Delivery Device Oxygen Flow Rate Vent Mode Vent Rate Mechanical Rate Pressure Support Vent Sodium 140 Potassium 4.3 Chloride 100 Carbon Dioxide 37 H Anion Gap 3 L BUN 11.2 Creatinine 0.5 L Est GFR (CKD-EPI)AfAm 103.01 Est GFR (CKD-EPI)NonAf 88.88 Random Glucose 58 L Calcium 9.4 Phosphorus 3.1 Magnesium 2.1 TSH 0.23 L Current Medications Generic Name Dose Route Start Last Admin Trade Name Freq PRN Reason Stop Dose Admin Enoxaparin Sodium 40 mg 10/18/18 10:00 10/20/18 10:26 Lovenox - SQ 40 mg DAILY [facility] Administration Ipratropium [place] 1 amp 10/17/18 23:47 10/19/18 20:25 Atrovent 0.02% Nebulizer - NEB 10/24/18 23:48 1 amp Q6H PRN Administration DYSPEPSIA Levofloxacin 500 mg 10/18/18 06:00 10/20/18 06:11 Levaquin - PO 500 mg DAILY@0600 [facility] Administration Levothyroxine Sodium 12.5 mcg/ 62.5 mcg 10/20/18 07:00 10/20/18 06:10 Levothyroxine Sodium 50 mcg PO 62.5 mcg DAILY@0700 [facility] Administration Methylprednisolone Sodium Succinate 40 mg 10/19/18 11:45 10/20/18 10:30 Solu-Medrol - IVPUSH Not Given Q8H-IV [facility] Pantoprazole Sodium 20 mg 10/18/18 10:00 10/20/18 10:26 Protonix - PO 20 mg DAILY [facility] Administration Home Medications Medication Instructions Recorded Omeprazole 20 mg PO DAILY 10/17/18 Thyroid [[place] Thyroid] 60 mg PO DAILY 10/19/18 ASSESSMENT AND PLAN: 83 year old female with history of Hypothyroidism, Pulmonary Fibrosis (sec to radiation therapy), 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 1. Acute Hypoxic Respiratory Failure secondary to Pneumonia with acute exacerbation of Pulmonary Fibrosis. CXR - L sided infiltrate. Afebrile, hemodynamically Stable. Urine Legionella/ Strep negative. Evaluated by Pulm - recommended for steroid course for Pul fibrosis. Reports abnormal reaction (shaking) to Solumedrol, will try Prednisone. Continue Bronchodilator Nebs. Pre/Post SpO2 qualifies for home O2 (currently being set up) Continue Levofloxacin (PCN allergy) to complete 5 day course, along with 5 days total Prednisone. Pulm follow up, out-patient PFTs. 2. Drug Reaction - pruritus s/p vancomycin - no rash or ongoing pruritus. 3. Pulmonary HTN/Moderate to Severe Echo shows Grade 1 diastolic dysfunction, moderate SD, Pul Artery pressure 41 Cardiology consulted - for out-patient follow up with Dr. Brewster. 4. Dysphagia - MBS performed and recommendations for pureed diet, ensure, magic cup. tolerating diet well. Out-patient GI referral if any ongoing dysphagia. 5. Hypothyroidism - TSH low - dose of Synthroid reduced - for repeat TSH in 3-4 weeks. 6. Malnutrition - Dietary recs include magic cup and ensure. DVT Px - Lovenox SQ. Medically optimized for discharge with home O2.
[2018-10-20] MEDS ORDERED: predniSONE 20 MG TABLET (UD) PO SCH (13:30)
[2018-10-20] MEDS ORDERED: IPRATROPIUM BR 0.02% 0.5 MG/2.5 ML VIAL.NEB. NEB PRN (14:39)
[2018-10-20 15:17] VITALS: BP 129/65; PULSE 102; TEMP 98.4
== END 2018-10-20 18:57 | disposition home or self-care (01) | DRG 193 ==
LOC: JER 13:07 → JERBED 16:52 → J4W 10-18 19:43
PROVIDERS: ADMIT Internal Medicine
DX: J18.9 Pneumonia, unspecified organism (principal); J96.21 Acute and chronic respiratory failure with hypoxia; J96.02 Acute respiratory failure with hypercapnia; E46 Unspecified protein-calorie malnutrition; R64 Cachexia; E87.1 Hypo-osmolality and hyponatremia; J84.10 Pulmonary fibrosis, unspecified; E88.09 Other disorders of plasma-protein metabolism, not elsewhere classified; I27.20 Pulmonary hypertension, unspecified; R13.10 Dysphagia, unspecified; J44.9 Chronic obstructive pulmonary disease, unspecified; E86.0 Dehydration; M41.9 Scoliosis, unspecified; I35.0 Nonrheumatic aortic (valve) stenosis; I37.1 Nonrheumatic pulmonary valve insufficiency; J98.4 Other disorders of lung; T36.8X5A Adverse effect of other systemic antibiotics, initial encounter; R07.89 Other chest pain; K21.9 Gastro-esophageal reflux disease without esophagitis; Z88.0 Allergy status to penicillin; E89.0 Postprocedural hypothyroidism; Z68.20 Body mass index [BMI] 20.0-20.9, adult; L29.9 Pruritus, unspecified; R01.1 Cardiac murmur, unspecified
CPT/HCPCS: 36415; 36600; 71045-TC-FY; 74230-TC-FY; 80048; 80053; 81003; 82803; 83735; 84100; 84443; 84484; 85025; 85027; 85610; 87040; 87086; 87899; 92611-GN; 93005; 93010; 93306-TC; 94640; 94761; 97116-GP; 97161-GP; 99285-25; J7030

== ENCOUNTER 2018-12-22 08:28 | Emergency (ER) | payer OTHER ==
[2018-12-22 08:36] VITALS: BMI 18.8
[2018-12-22 09:52] LABS: BASO % 0.5 % (0-2.0); EOS % 3.4 % (0-4.5); HEMOGLOBIN 12.6 GM/dL (10.7-15.3); LYMPH % 13.2 % (8-40); MCH 29.1 pg (25.7-33.7); MCHC 33.2 g/dl (32.0-36.0); MEAN CELL VOLUME 87.7 fl (80-96); MEAN PLT VOLUME 9.2 fl (7.5-11.1); MONO % 5.1 % (3.8-10.2); NEUT % 77.8 % (42.8-82.8); PLATELET COUNT 282 K/MM3 (134-434); RBC 4.33 M/mm3 (3.60-5.2); RDW 16.1 % (11.6-15.6); WHITE BLOOD COUNT 10.6 K/mm3 (4.0-10.0)
[2018-12-22 10:18] LABS: ALBUMIN 3.5 g/dl (3.4-5.0); BILIRUBIN,TOTAL 0.7 mg/dL (0.2-1); BLOOD UREA NITROGEN 10.2 mg/dL (7-18); CALCIUM 9.7 mg/dL (8.5-10.1); CREATININE 0.6 mg/dL (0.55-1.3); TOT PROT 9.6 g/dl (6.4-8.2)
--- NOTE | 2018-12-22 11:01 | EKG ---
Test Reason : Blood Pressure : / mmHG Vent. Rate : 105 BPM Atrial Rate : 105 BPM P-R Int : 132 ms QRS Dur : 088 ms QT Int : 338 ms P-R-T Axes : 054 002 047 degrees QTc Int : 446 ms SINUS TACHYCARDIA WITH OCCASIONAL PREMATURE VENTRICULAR COMPLEXES POSSIBLE LEFT ATRIAL ENLARGEMENT BORDERLINE ECG WHEN COMPARED WITH ECG OF 17-OCT-2018 13:15, PREMATURE VENTRICULAR COMPLEXES ARE NOW PRESENT Confirmed by CHRISTIANO WALKER, LEONA ([id number]) on 12/22/2018 11:01:17 AM Referred By: Confirmed By:LEONA ALVARADO MD
--- NOTE | 2018-12-22 11:36 | PDOC ---
Documentation entered by Sonam Cain SCRIBE, acting as scribe for Bryson Jose MD. Bryson Jose MD: This documentation has been prepared by the Payton pedroza Sammi, SCRIBE, under my direction and personally reviewed by me in its entirety. I confirm that the documentation accurately reflects all work, treatment, procedures, and medical decision making performed by me. History of Present Illness - General Chief Complaint: Shortness of Breath Stated Complaint: SOB Time Seen by Provider: 12/22/18 08:49 - History of Present Illness Initial Comments: 12/22/18 09:22 The patient is an 83 year old female who was sent to the emergency department by her dumbwaiter operator for a CT (from 19 days ago) that demonstrated pneumonia. The patient presents complaining of dyspnea, intermittent cough, weight loss ( from 119lbs - 90lbs in 7 months). The patient is on 4L of home oxygen. Denies chest pain or fever. The patient was admitted at another hospital back in June for pneumonia. Social history: second hand smoke exposure Past History - Past Medical History Allergies/Adverse Reactions: Allergies Allergy/AdvReac Type Severity Reaction Status Date / Time Penicillins Allergy Verified 12/22/18 08:36 albuterol AdvReac Verified 12/22/18 08:36 Home Medications: Ambulatory Orders Omeprazole 20 mg PO DAILY 10/17/18 Ipratropium 0.02% Nebulizer [Atrovent 0.02% Nebulizer -] 1 amp NEB Q6H PRN #1 amp 10/20/18 Thyroid [[place] Thyroid] 30 mg PO DAILY 30 Days #30 tablet 10/20/18 Doxycycline Hyclate [Vibratab -] 100 mg PO BID #20 tablet 12/22/18 Fluticasone/Umeclidin/Vilanter [Trelegy Ellipta 100-62.5-25] 1 each IH DAILY predniSONE [Deltasone -] 20 mg PO ONCE #14 tablet 12/22/18 Asthma: Yes Cardiac Disorders: Yes (Bicuspid aortic valve) COPD: No GI Disorders: Yes (GERD) Thyroid Disease: Yes (hypo) - Psycho Social/Smoking Cessation Hx Smoking History: Never smoked Have you smoked in the past 12 months: No Hx Alcohol Use: No Drug/Substance Use Hx: No Substance Use Type: None Hx Substance Use Treatment: No Review of Systems - Review of Systems Comments:: 12/22/18 09:28 CONSTITUTIONAL: +weight loss. No fever, no chills, no fatigue CARDIOVASCULAR: No chest pain, no palpitations RESPIRATORY: +SOB. +intermittent cough. GI: No abdominal pain, no nausea, no vomiting, no constipation, no diarrhea GENITOURINARY: No dysuria, no frequency, no hematuria MUSKULOSKELETAL: No backpain, no joint pain, no myalgias SKIN: No rash NEURO: No headache *Physical Exam - Vital Signs Last Vital Signs Temp Pulse Resp BP Pulse Ox 97.8 F 110 H 26 H 123/68 85 L 12/22/18 08:32 12/22/18 08:32 12/22/18 08:32 12/22/18 08:32 12/22/18 08:32 - Physical Exam Comments: 12/22/18 11:16 EXAMINATION CONSTITUTIONAL: Awake and alert, frail-appearing,; in no apparent distress HEAD: Normocephalic; atraumatic EYES: PERRL; EOM intact ENMT: External appears normal; normal oropharynx NECK: Supple; no jvd; no cervical lymphadenopathy CARD: tachycardic; Normal S1, S2; no murmurs, rubs, or gallops RESP: decreased air entry b/l with diffuse ronchi (L>R). + lef mastectomy ABD: Soft, non-distended; non-tender; no palpable organomegaly, no palpable hernias EXT: Normal ROM in all four extremities; non-tender to palpation; distal pulses intact SKIN: Warm, dry, no rash NEURO: No focal neurological deficiencies. Heart Score/ECG Review - ECG Impressions Comment:: 12/22/18 09:35 sinus tachycardia with occasional premature ventricular complexes possible left atrial enlargement borderline ECG ED Treatment Course - LABORATORY CBC & Chemistry Diagram: 12/22/18 09:20 12/22/18 09:20 - ADDITIONAL ORDERS Additional order review: Laboratory Results 12/22/18 09:20 Sodium 135 L Potassium 4.0 Chloride 98 Carbon Dioxide 32 Anion Gap 5 L BUN 10.2 Creatinine 0.6 Est GFR (CKD-EPI)AfAm 97.01 Est GFR (CKD-EPI)NonAf 83.70 Random Glucose 89 Calcium 9.7 Total Bilirubin 0.7 AST 59 H ALT 18 Alkaline Phosphatase 101 Total Protein 9.6 H Albumin 3.5 12/22/18 09:20 RBC 4.33 MCV 87.7 MCHC 33.2 RDW 16.1 H MPV 9.2 Neutrophils % 77.8 Lymphocytes % 13.2 Monocytes % 5.1 D Eosinophils % 3.4 D Basophils % 0.5 - RADIOLOGY Radiology Studies Ordered: Category Date Time Status CHEST X-RAY PORTABLE* [RAD] Stat Radiology 12/22/18 09:19 Completed Medical Decision Making - Medical Decision Making 12/22/18 11:31 Patient is an 83-year-old female with history of advanced pulmonary fibrosis who was referred to the ER by her outpatient dumbwaiter operator for evaluation of possible pneumonia which was noted on a CAT scan of chest obtained on November. Patient followed up on December with the dumbwaiter operator who referred her to the ER for precautionary reasons as per patient's son. Patient denies any acute symptoms preceding her arrival in the ED. She endorses chronic intermittent nonproductive cough and unintentional weight loss of 20 to 25 pounds over the period of 7 months. Patient denies fever or chills/chest pain/abdominal pain/bleeding prior to arrival. In the ER , patient is noted to be hypoxemic on room air but improving to 100% saturation on supplemental O2 via nasal cannula at 2 L/min (patient is required to maintain supplemental O2 at 4 L at baseline. Patient's chest x-ray reveals severe kyphosis, severe fibrotic changes mostly localized to the left upper lobe and atelectasis which are unchanged from an x-ray obtained in October of this year. Patient CBC reveals minimal leukocytosis of 10.6 but no other abnormalities. CMP reveals no significant electrolyte abnormalities. EKG reveals no evidence of ischemia. Patient seen and evaluated by Dr. Fulton of pulmonology. At this time there is no indication for admission. However, given presence of questionable pneumonia on the previously noted CAT scan, will discharge with Doxy-100 p.o. twice daily and prednisone 20 daily until reevaluated by outpatient pulmonology. I discussed the plan of care with the patient and her son expressed understanding and agreement. Will discharge. Discharge - Discharge Information Problems reviewed: Yes Clinical Impression/Diagnosis: Kyphoscoliosis and scoliosis PNA (pneumonia) Qualifiers: Pneumonia type: due to unspecified organism Laterality: left Lung location: upper lobe of lung Qualified Code(s): J18.1 - Lobar pneumonia, unspecified organism Bronchiectasis Qualifiers: Bronchiectasis type: with acute lower respiratory infection Qualified Code(s): J47.0 - Bronchiectasis with acute lower respiratory infection Condition: Stable Disposition: HOME - Additional Discharge Information Prescriptions: Doxycycline Hyclate [Vibratab -] 100 mg PO BID #20 tablet predniSONE [Deltasone -] 20 mg PO ONCE #14 tablet - Follow up/Referral Referrals: ON STAFF,NOT [Primary Care Provider] - Abdullahi Spivey MD [Staff Physician] - - Patient Discharge Instructions Patient Printed Discharge Instructions: DI for Pneumonia -- Adult - Post Discharge Activity
[2018-12-22 11:55] VITALS: BP 100/58; PULSE 107; TEMP 97.5
== END 2018-12-22 12:45 | disposition home or self-care (01) ==
LOC: JER 08:28
DX: J18.1 Lobar pneumonia, unspecified organism (principal); J47.0 Bronchiectasis with acute lower respiratory infection; M41.9 Scoliosis, unspecified; J84.10 Pulmonary fibrosis, unspecified; E03.9 Hypothyroidism, unspecified; J45.909 Unspecified asthma, uncomplicated; K21.9 Gastro-esophageal reflux disease without esophagitis; Z88.0 Allergy status to penicillin; Z88.8 Allergy status to other drugs, medicaments and biological substances; Q23.1 Congenital insufficiency of aortic valve
CPT/HCPCS: 36415; 71045-TC-FY; 80053; 85025; 87040; 93005; 93010; 99283-25